=== PATIENT | female | born 1965 | race Caucasian/White ===

== ENCOUNTER → 2020-03-24 | Outpatient (CLI) | payer OTHER ==
[2014-07-06 11:40] VITALS: BP 155/82
[~2020-03-24] MED LIST: CETI10TA24 PO; LEVO125T PO; LEVO88TA2 PO; LIPITOR80 MG PO; MECL-75 PO; METO25TA4 PO; SERT100T PO
== END ==
LOC: LAB 08:55
PROVIDERS: ATTEND Registered Nurse
DX: Z20.828 Contact with and (suspected) exposure to other viral communicable diseases (principal)
CPT/HCPCS: U0003-CS

== ENCOUNTER → 2020-03-28 | Day surgery (SDC) | payer OTHER ==
[~2020-03-28] MED LIST changes: -CETI10TA24 PO; +CETI10TA74 PO; +IV RINGERS SOLUTION,LACTATED 1,000 ML IV SCH; +MIDAZOLAM HCL PF 2 MG/2 ML VIAL. IV ONE; +ONDANSETRON PF 4 MG/2 ML VIAL. IV PRN; +PROPOFOL 10,000 MCG/ML (20ML) VIAL IV ONE
[2020-03-28 08:58] VITALS: BP 137/85
== END | disposition home or self-care (01) ==
LOC: SURG 06:21
PROVIDERS: ATTEND Emergency Medicine
DX: Z12.11 Encounter for screening for malignant neoplasm of colon (principal); K63.5 Polyp of colon; K57.30 Diverticulosis of large intestine without perforation or abscess without bleeding; I10 Essential (primary) hypertension; E78.00 Pure hypercholesterolemia, unspecified; F17.210 Nicotine dependence, cigarettes, uncomplicated; F41.9 Anxiety disorder, unspecified; G47.33 Obstructive sleep apnea (adult) (pediatric); E89.0 Postprocedural hypothyroidism; Z91.040 Latex allergy status; Z86.73 Personal history of transient ischemic attack (TIA), and cerebral infarction without residual deficits; Z91.041 Radiographic dye allergy status; Z79.899 Other long term (current) drug therapy; Z86.010 Personal history of colon polyps; Z98.890 Other specified postprocedural states; Z88.8 Allergy status to other drugs, medicaments and biological substances
CPT/HCPCS: 45380; 88305; J2704; J7120

== ENCOUNTER 2021-06-19 04:16 | Emergency (ER) | payer OTHER ==
[~2021-06-19] VITALS: Ht 160 cm; Wt 54.2 kg
[~2021-06-19 04:16] MED LIST changes: -IV RINGERS SOLUTION,LACTATED 1,000 ML IV SCH; -MIDAZOLAM HCL PF 2 MG/2 ML VIAL. IV ONE; -ONDANSETRON PF 4 MG/2 ML VIAL. IV PRN; -PROPOFOL 10,000 MCG/ML (20ML) VIAL IV ONE
[2021-06-19 04:25] VITALS: BP 153/89
[2021-06-19] MEDS ORDERED: PRED50TA PO (04:44)
[2021-06-19] MEDS ORDERED: HYDR-2759 PO (04:44)
--- NOTE | 2021-06-19 04:45 | PHYS DOC ---
Past History Past Medical History: No Pertinent History Past Surgical History: Cholecystectomy, Other Additional Past Surgical Histo: uterine ablation Alcohol Use: None Drug Use: None General Adult EDM: Chief Complaint: HIP PAIN HPI: HPI: 55-year-old female presents with left hip pain. The patient had an episode at home 2 days ago where she lost her balance and fell against the wall. As she fell she was reaching out for the handrail and went down and twisted her ankle. Since that time, she has had left-sided hip pain. The patient has a herniated disc but this pain feels like it is in a different area. She describes it as a throbbing at the posterior left hip. She denies radiation of pain down her leg. She has no other complaints at this time. Review of Systems: Review of Systems: Constitutional: Denies fever or chills Eyes: Denies change in visual acuity HENT: Denies nasal congestion or sore throat Respiratory: Denies cough or shortness of breath Cardiovascular: Denies chest pain or edema GI: Denies abdominal pain, nausea, vomiting, bloody stools or diarrhea : Denies dysuria Musculoskeletal: Left hip pain Integument: Denies rash Neurologic: Denies headache, focal weakness or sensory changes Endocrine: Denies polyuria or polydipsia Lymphatic: Denies swollen glands Psychiatric: Denies depression or anxiety Allergies: Allergies: Allergies Coded Allergies Type Severity Reaction Last Updated Verified Iodinated Contrast Media Allergy Intermediate 06/19/21 Yes latex Allergy Intermediate 06/19/21 Yes pseudoephedrine Allergy Intermediate 06/19/21 Yes Physical Exam: PE: Constitutional: Well developed, well nourished, no acute distress, non-toxic appearance. [] HENT: Normocephalic, atraumatic, bilateral external ears normal, oropharynx moist, no oral exudates, nose normal. [] Eyes: PERRLA, EOMI, conjunctiva normal, no discharge. [] Neck: Normal range of motion, no tenderness, supple, no stridor. [] Cardiovascular:Heart rate regular rhythm, no murmur [] Lungs & Thorax: Bilateral breath sounds clear to auscultation [] Abdomen: Bowel sounds normal, soft, no tenderness, no masses, no pulsatile masses. [] Skin: Warm, dry, no erythema, no rash. [] Back: Tenderness over the left sacroiliac joint. [] Extremities: No tenderness, no cyanosis, no clubbing, ROM intact, no edema. [] Neurologic: Alert and oriented X 3, normal motor function, normal sensory function, no focal deficits noted. [] Psychologic: Affect normal, judgement normal, mood normal. [] Current Patient Data: Vital Signs: Vital Signs Date Time Temp Pulse Resp B/P (MAP) Pulse Ox O2 Delivery O2 Flow Rate FiO2 06/19/21 04:25 98.2 87 20 153/89 (110) 94 Room Air EKG: EKG: [] Radiology/Procedures: Radiology/Procedures: [] Heart Score: C/O Chest Pain: N/A Risk Factors: Risk Factors: DM, Current or recent (<one month) smoker, HTN, HLP, family history of CAD, obesity. Risk Scores: Score 0 - 3: 2.5% MACE over next 6 weeks - Discharge Home Score 4 - 6: 20.3% MACE over next 6 weeks - Admit for Clinical Observation Score 7 - 10: 72.7% MACE over next 6 weeks - Early Invasive Strategies Course & Med Decision Making: Course & Med Decision Making Pertinent Labs and Imaging studies reviewed. (See chart for details) The patient appears to have left sacroiliitis. I will treat her with prednisone, ice, and short course of Trosper 5/325 so she can sleep. Hip x-rays negative for acute findings. This should improve in the next couple of days. She is stable for discharge at this time. [] Dragon Disclaimer: Dragon Disclaimer: This electronic medical record was generated, in whole or in part, using a voice recognition dictation system. Departure Departure: Impression: Primary Impression: Sacroiliitis Disposition: HOME / SELF CARE / HOMELESS Condition: STABLE Referrals: STAN VASQUEZ DO (PCP) Patient Instructions: Sacroiliac Joint Dysfunction Scripts Prednisone (PREDNISONE) 50 Mg Tablet 1 TAB PO DAILY for sacroiliac joint pain for 4 Days, #4 TAB Prov: ERROL KIDD DO 06/19/21 Hydrocodone/Acetaminophen (Hydrocodone-Acetamin 5-325 mg) 1 Each Tablet 1 EACH PO Q4-6HRS PRN for PAIN, #10 TAB Prov: ERROL KIDD DO 06/19/21 ERROL KIDD DO Jun 19, 2021 04:45
[2021-06-19] MEDS: HYDROcodone/APAP 5/325MG 1 TAB TABLET PO ONE (04:57)
[2021-06-19] MEDS: predniSONE 20 MG TABLET PO ONE (04:57)
--- NOTE | 2021-06-19 05:01 | RAD ---
XR BILATERAL HIP (WITH OR WITHOUT PELVIS) LEFT 2 VIEWS History: Left hip pain Comparison: None. Technique: AP view pelvis and 2 coned-down views of the left hip. Findings: Osseous mineralization is normal. No acute fracture or dislocaton. No significant joint space narrowi ng. The pubic rami are intact. Unremarkable sacroiliac joints and pubic symphysis. Soft tissues are u nremarkable. Impression: 1. No acute osseous abnormality of the left hip. Electronically signed by: Viet Pino MD (06/19/2021 4:59 AM) [facility]
== END 2021-06-19 04:59 | disposition home or self-care (01) ==
LOC: ER 04:16
DX: M46.1 Sacroiliitis, not elsewhere classified (principal); Z90.49 Acquired absence of other specified parts of digestive tract; Z91.041 Radiographic dye allergy status; Z91.040 Latex allergy status; Z88.8 Allergy status to other drugs, medicaments and biological substances; W18.39XA Other fall on same level, initial encounter; Y93.89 Activity, other specified; Y92.89 Other specified places as the place of occurrence of the external cause; Y99.8 Other external cause status
CPT/HCPCS: 73502; 99284; J7512